=== PATIENT | female | born 1975 | race Two or more races ===

== ENCOUNTER 2018-01-24 12:37 | Emergency (ER) | payer OTHER ==
[~2018-01-24] VITALS: Ht 160 cm; Wt 54.4 kg
[2018-01-24] MEDS ORDERED: GABAPENTIN300 MG (13:05)
[2018-01-24] MEDS ORDERED: GABAPENTIN600 MG PO ×2 (13:06→13:07)
[2018-01-24] MEDS ORDERED: ZOLOFT100 MG PO (13:07)
[2018-01-24] MEDS ORDERED: PROAIR HFA8.5 GM (13:09)
== END 2018-01-24 14:13 | disposition home or self-care (01) ==
LOC: ER 12:37
DX: L02.416 Cutaneous abscess of left lower limb (principal)

== ENCOUNTER 2018-04-05 07:47 | Emergency (ER) | payer OTHER ==
[~2018-04-05] VITALS: Ht 157.5 cm; Wt 54.4 kg
[~2018-04-05 07:47] MED LIST: GABAPENTIN300 MG; GABAPENTIN600 MG PO; PROAIR HFA8.5 GM; ZOLOFT100 MG PO
[2018-04-05] MEDS ORDERED: SEROQUEL25 MG (08:11)
== END 2018-04-05 13:56 | disposition home or self-care (01) ==
LOC: ER 07:47
DX: N20.2 Calculus of kidney with calculus of ureter (principal)

== ENCOUNTER 2018-04-08 05:18 | Emergency (ER) | payer OTHER ==
[~2018-04-08] VITALS: Ht 157.5 cm; Wt 54.4 kg
[~2018-04-08 05:18] MED LIST changes: +SEROQUEL25 MG
== END 2018-04-08 15:40 | disposition home or self-care (01) ==
LOC: ER 05:18
DX: N20.2 Calculus of kidney with calculus of ureter (principal)